=== PATIENT | male | born 1960 | race Caucasian/White ===

== ENCOUNTER 2022-04-22 12:44 | Inpatient (IN) ==
[2022-04-22] MEDS ORDERED: SODIUM CHLORIDE 0.9% 1,000 ML IV STA (13:15)
[2022-04-22 13:59] LABS: Basophils # 0.1 10*3/uL (0.0-0.2); Basophils % 1.2 % (0.0-0.8); Eosinophils # 0.3 10*3/uL (0.0-0.87); Eosinophils % 6.7 % (0.00-10.9); Hematocrit 39.3 VOL% (42.0-52.0); Hemoglobin 13.4 GM/DL (14.0-18.0); Immature Granulocytes % 0.2 %; Immature Granulocytes Absolute 0.01 #; Lymphocytes # 1.5 10*3/uL (1.4-4.0); Lymphocytes % 30.3 % (21.2-54.2); Mean Corpuscular HGB Conc 34.1 GM/DL (32-36); Mean Platelet Volume 9.1 FL (9.6-12.0); Monocytes # 0.4 10*3/uL (0.11-0.8); Monocytes % 8.4 % (1.7-12.7); Neutrophils % 53.2 % (38.7-73.9); Platelet Count 218 T/CUMM (130-400); Red Blood Count 4.18 MC/CUMM (3.8-5.5); Red Cell Distribution Width 12.3 % (9.3-17.3); White Blood Count 4.9 T/CUMM (4-12)
[2022-04-22 14:23] LABS: Albumin 3.2 G/DL (3.4-5.0); Bilirubin,Total 0.5 MG/DL (0.20-1.00); Calcium 8.9 MG/DL (8.5-10.1); Osmolality,Calculated 292.3 MOS/KG (273-304); Total Protein 6.2 G/DL (6.4-8.2)
[2022-04-22 15:15] LABS: Bacteria,Urine Occasional /HPF (Few); Bilirubin,Urine Negative (Negative); Blood, Urine Small mg/dL (Negative); Glucose,Urine (UA) >=500 mg/dL (Negative); Ketones,Urine 5 mg/dL (Negative); Mucus,Urine Occasional /LPF (Occasional); Nitrite,Urine Negative (Negative); Protein,Urine Negative (Negative); Squamous Epithelial Cell,Urine Occasional /HPF (0-10); Urine Appearance CLEAR (Clear); Urine Specific Gravity 1.026 (1.001-1.035); Urine Urobilinogen < 2.0 eU/dL (<2.0)
[2022-04-22 15:19] LABS: Barbiturates Screen,Urine Negative (Negative); Benzodiazepines Screen,Urine Negative (Negative); Cannabinoid Screen,Urine Negative (Negative); Opiate Screen,Urine Negative (Negative); Phencyclidine Screen,Urine Negative (Negative)
[2022-04-22] MEDS ORDERED: ZALEPLON 5 MG CAPSULE PO PRN (16:34)
[2022-04-22] MEDS ORDERED: ONDANSETRON 4 MG/2 ML VIAL IV PRN (16:34)
[2022-04-22] MEDS ORDERED: GLUCAGON 1 MG VIAL IM PRN (16:34)
[2022-04-22] MEDS ORDERED: ACETAMINOPHEN 325 MG TABLET PO PRN (16:34)
[2022-04-22] MEDS ORDERED: DEXTROSE 10% 250 ML BAG IV PRN (16:43)
[2022-04-22] MEDS ORDERED: hydrALAZINE 20 MG/1 ML VIAL IV PRN (16:50)
[2022-04-22] MEDS: ENOXAPARIN 40 MG/0.4 ML SYRINGE SUBCUT SCH (17:15)
[2022-04-22] MEDS: ENALAPRIL 20 MG TABLET PO SCH (21:51)
[2022-04-22] MEDS: ATORVASTATIN 40 MG TABLET PO SCH (21:51)
[2022-04-22] MEDS: INSULIN REGULAR 100 UNIT/ML SUBCUT SCH (22:27)
[2022-04-23 07:24] LABS: Folate 10.47 NG/ML (5.38-24.0)
[2022-04-23 07:33] LABS: Risk Ratio 2.9; VLDL Cholesterol 21.8 MG/DL
[2022-04-23] MEDS ORDERED: amLODIPine 5 MG TABLET PO SCH (09:00)
[2022-04-23] MEDS ORDERED: GLIMEPIRIDE 4 MG TABLET PO SCH (09:00)
[2022-04-23] MEDS: ENALAPRIL 20 MG TABLET PO SCH ×2 (09:28→22:21)
[2022-04-23] MEDS: ASPIRIN EC 81 MG TABLET PO SCH (09:28)
[2022-04-23] MEDS: sitaGLIPtin 100 MG TABLET PO SCH (09:28)
[2022-04-23] MEDS: PANTOPRAZOLE 40 MG TABLET PO SCH (09:28)
[2022-04-23] MEDS: TOPIRAMATE 25 MG TABLET PO SCH (09:28)
[2022-04-23] MEDS: INSULIN REGULAR 100 UNIT/ML SUBCUT SCH ×4 (09:28→22:21)
[2022-04-23] MEDS: ENOXAPARIN 40 MG/0.4 ML SYRINGE SUBCUT SCH (18:23)
[2022-04-23] MEDS: ATORVASTATIN 40 MG TABLET PO SCH (22:21)
[2022-04-24 04:36] LABS: Basophils # 0.1 10*3/uL (0.0-0.2); Basophils % 1.2 % (0.0-0.8); Eosinophils # 0.3 10*3/uL (0.0-0.87); Eosinophils % 6.6 % (0.00-10.9); Hematocrit 35.9 VOL% (42.0-52.0); Hemoglobin 12.4 GM/DL (14.0-18.0); Immature Granulocytes % 0.4 %; Immature Granulocytes Absolute 0.02 #; Lymphocytes # 2.7 10*3/uL (1.4-4.0); Lymphocytes % 51.3 % (21.2-54.2); Mean Corpuscular HGB Conc 34.5 GM/DL (32-36); Mean Platelet Volume 9.1 FL (9.6-12.0); Monocytes # 0.5 10*3/uL (0.11-0.8); Neutrophils % 30.5 % (38.7-73.9); Platelet Count 209 T/CUMM (130-400); Red Blood Count 3.82 MC/CUMM (3.8-5.5); Red Cell Distribution Width 12.1 % (9.3-17.3); White Blood Count 5.2 T/CUMM (4-12)
[2022-04-24 05:04] LABS: Calcium 8.7 MG/DL (8.5-10.1); Osmolality,Calculated 289.1 MOS/KG (273-304); Potassium 3.4 MMOL/L (3.5-5.1)
[2022-04-24 05:05] LABS: Eosinophils 2 % (0-10); Lymphocytes 56 % (20-55); Platelet Estimate Adequate; Total Cells Counted 100
[2022-04-24] MEDS ORDERED: POTASSIUM CHLORIDE 20 MEQ TABLET PO ONE (09:00)
[2022-04-24] MEDS ORDERED: MAGNESIUM SULF RIDER 4 GM/100 ML PREMIX IV ONE (09:00)
[2022-04-24] MEDS: INSULIN REGULAR 100 UNIT/ML SUBCUT SCH ×4 (09:05→21:08)
[2022-04-24] MEDS: sitaGLIPtin 100 MG TABLET PO SCH (09:11)
[2022-04-24] MEDS: PANTOPRAZOLE 40 MG TABLET PO SCH (09:11)
[2022-04-24] MEDS: ENALAPRIL 20 MG TABLET PO SCH ×2 (09:11→21:07)
[2022-04-24] MEDS: TOPIRAMATE 25 MG TABLET PO SCH (09:11)
[2022-04-24] MEDS: ASPIRIN EC 81 MG TABLET PO SCH (09:11)
[2022-04-24] MEDS: DAPAGLIFLOZIN 10 MG TABLET PO SCH (09:11)
[2022-04-24] MEDS ORDERED: TUBERCULIN SKIN TEST 0.1 ML SYRINGE INTRADERM ONE (11:00)
[2022-04-24] MEDS: ENOXAPARIN 40 MG/0.4 ML SYRINGE SUBCUT SCH (17:49)
[2022-04-24] MEDS: ATORVASTATIN 40 MG TABLET PO SCH (21:08)
[2022-04-24] MEDS: INSULIN GLARGINE 100 UNIT/ML SUBCUT SCH (21:08)
[2022-04-25 05:13] LABS: Basophils # 0.1 10*3/uL (0.0-0.2); Eosinophils # 0.3 10*3/uL (0.0-0.87); Eosinophils % 4.7 % (0.00-10.9); Hematocrit 35.5 VOL% (42.0-52.0); Hemoglobin 12.3 GM/DL (14.0-18.0); Immature Granulocytes % 0.3 %; Immature Granulocytes Absolute 0.02 #; Lymphocytes # 2.7 10*3/uL (1.4-4.0); Lymphocytes % 44.7 % (21.2-54.2); Mean Corpuscular HGB Conc 34.6 GM/DL (32-36); Mean Corpuscular Volume 93.4 FL (87-102); Mean Platelet Volume 9.3 FL (9.6-12.0); Monocytes # 0.5 10*3/uL (0.11-0.8); Monocytes % 8.5 % (1.7-12.7); Neutrophils % 40.8 % (38.7-73.9); Platelet Count 209 T/CUMM (130-400); Red Cell Distribution Width 12.2 % (9.3-17.3); White Blood Count 6.1 T/CUMM (4-12)
[2022-04-25 05:26] LABS: Calcium 8.8 MG/DL (8.5-10.1); Potassium 3.6 MMOL/L (3.5-5.1)
[2022-04-25] MEDS: INSULIN REGULAR 100 UNIT/ML SUBCUT SCH ×4 (07:21→21:22)
[2022-04-25] MEDS ORDERED: POTASSIUM CHLORIDE 20 MEQ TABLET PO ONE (08:00)
[2022-04-25] MEDS: ENALAPRIL 20 MG TABLET PO SCH (08:47)
[2022-04-25] MEDS: sitaGLIPtin 100 MG TABLET PO SCH (08:47)
[2022-04-25] MEDS: PANTOPRAZOLE 40 MG TABLET PO SCH (08:48)
[2022-04-25] MEDS: ASPIRIN EC 81 MG TABLET PO SCH (08:48)
[2022-04-25] MEDS: TOPIRAMATE 25 MG TABLET PO SCH (08:48)
[2022-04-25] MEDS: DAPAGLIFLOZIN 10 MG TABLET PO SCH (08:48)
[2022-04-25] MEDS ORDERED: MAGNESIUM OXIDE 400 MG TABLET PO SCH (09:00)
[2022-04-25] MEDS: BACILLUS COAGULANS CAPLET PO SCH (15:27)
[2022-04-25] MEDS: ENOXAPARIN 40 MG/0.4 ML SYRINGE SUBCUT SCH (17:41)
[2022-04-25] MEDS ORDERED: ENALAPRIL 5 MG TABLET PO SCH (21:00)
[2022-04-25] MEDS: INSULIN GLARGINE 100 UNIT/ML SUBCUT SCH (21:22)
[2022-04-25] MEDS: ATORVASTATIN 40 MG TABLET PO SCH (21:25)
[2022-04-26 05:49] LABS: Basophils # 0.1 10*3/uL (0.0-0.2); Basophils % 1.3 % (0.0-0.8); Eosinophils # 0.2 10*3/uL (0.0-0.87); Eosinophils % 4.4 % (0.00-10.9); Hematocrit 36.1 VOL% (42.0-52.0); Hemoglobin 12.6 GM/DL (14.0-18.0); Immature Granulocytes % 0.4 %; Immature Granulocytes Absolute 0.02 #; Lymphocytes # 2.5 10*3/uL (1.4-4.0); Lymphocytes % 47.8 % (21.2-54.2); Mean Corpuscular HGB Conc 34.9 GM/DL (32-36); Monocytes # 0.5 10*3/uL (0.11-0.8); Monocytes % 10.4 % (1.7-12.7); Neutrophils % 35.7 % (38.7-73.9); Platelet Count 191 T/CUMM (130-400); Red Blood Count 3.84 MC/CUMM (3.8-5.5); Red Cell Distribution Width 12.3 % (9.3-17.3); White Blood Count 5.2 T/CUMM (4-12)
[2022-04-26 06:03] LABS: Calcium 8.7 MG/DL (8.5-10.1); Osmolality,Calculated 288.8 MOS/KG (273-304); Potassium 3.6 MMOL/L (3.5-5.1)
[2022-04-26 06:23] LABS: Eosinophils 5 % (0-10); Lymphocytes 45 % (20-55); Total Cells Counted 100
[2022-04-26 06:24] LABS: Platelet Estimate Adequate
[2022-04-26] MEDS ORDERED: ENALAPRIL 5 MG TABLET PO SCH (09:00)
[2022-04-26] MEDS: DAPAGLIFLOZIN 10 MG TABLET PO SCH (09:37)
[2022-04-26] MEDS: sitaGLIPtin 100 MG TABLET PO SCH (09:37)
[2022-04-26] MEDS: TOPIRAMATE 25 MG TABLET PO SCH (09:37)
[2022-04-26] MEDS: ASPIRIN EC 81 MG TABLET PO SCH (09:38)
[2022-04-26] MEDS: INSULIN REGULAR 100 UNIT/ML SUBCUT SCH ×2 (09:38→11:53)
[2022-04-26] MEDS: PANTOPRAZOLE 40 MG TABLET PO SCH (09:38)
[2022-04-26] MEDS: BACILLUS COAGULANS CAPLET PO SCH (09:38)
[2022-04-26 11:45] VITALS: BP 148/82
== END 2022-04-26 12:51 | DRG 57 ==
LOC: EDUNIT# → N.ED 12:44 → N.EDINP 12:44 → SUATTDRO 16:34 → N.3E 17:48 → SUATTDRO 04-23 08:47
PROVIDERS: ADMIT Internal Medicine; ATTEND Hospitalist